=== PATIENT | male | born 1945 | race Caucasian/White ===

== ENCOUNTER 2018-02-13 11:03 | Emergency (ER) | payer OTHER, MEDICARE ==
[2018-02-13] MEDS ORDERED: Alum Hydrox/Mag Hydrox/Simeth 30 ML, Lidocaine 2% 15 ML PO ONE ×2 (11:57)
[2018-02-13] MEDS ORDERED: Famotidine 20 MG Tab PO ONE (11:58)
[2018-02-13] MEDS ORDERED: Prochlorperazine 5 MG Tab PO ONE (11:59)
--- NOTE | 2018-02-13 12:29 | EDM.PDOC ---
ED HPI GENERAL MEDICAL PROBLEM - General Chief Complaint: Abdominal Pain Stated Complaint: UPPER ABDOMINAL PAIN Time Seen by Provider: 02/13/18 11:41 Source of Information: Reports: Patient History Limitations: Reports: No Limitations - History of Present Illness INITIAL COMMENTS - FREE TEXT/NARRATIVE: Patient is a 73-year-old male who has been recently diagnosed with lung cancer stage IV undergoing chemotherapy. He's completed 3 treatments. States since Wednesday after eating chili he has been experiencing intermittent hiccups with eating or drinking. He questions if he may have a chili rodriguez stuck in his throat. This started Wednesday evening. He has continued to eat and drink with no difficulties. He is able to keep food or liquids down. He does experience some intermittent pain to the epigastric region with eating or drinking and does go away. Severity is mild with waxing and waning. Localized with no radiation. At its worse is rated a 4 out of 10. He has not taken any medications for this complaint. There's been no change in appetite. Currently with admission to the ED there is no discomfort. He does have a history of peptic ulcer at a young age. He's had a EGD and a colonoscopy with no significant findings with rectal cancer that has been since treated. Denies any sob breath, chest pain, nausea vomiting, fevers, hemoptysis, abdominal pain currently, bloody stool, dark tarry stool, diarrhea, constipation, painful urination, or any additional complaints. He carries a history of hypertension and is currently on lisinopril with HCTZ. He's undergone bilateral inguinal hernia repairs. Gallbladder and appendix remain intact. No history of diverticulitis. Of note patient states with drinking cold liquids he does get a sensation of pain to esophagus and epigastric region since starting chemotherapy. Mid-Sternal Chest Pain Score (Numeric/FACES): 5 - Related Data Allergies Allergy/AdvReac Type Severity Reaction Status Date / Time No Known Allergies Allergy Verified 02/13/18 11:24 Home Meds: Home Meds Hyoscyamine Sulfate [Levsin-Sl] 0.125 mg SL TID PRN #21 tab.subl 02/13/18 [Rx] Lisinopril/Hydrochlorothiazide [Lisinopril-Hctz 10-12.5 mg Tab] 1 each PO DAILY 02/13/18 [History] Past Medical History Cardiovascular History: Reports: Hypertension Musculoskeletal History: Reports: Other (See Below) Other Musculoskeletal History: bilateral elbow surgery Oncologic (Cancer) History: Reports: Lung - Past Surgical History GI Surgical History: Reports: Hernia, Inguinal Musculoskeletal Surgical History: Reports: Shoulder Replacement, Shoulder Surgery Other Musculoskeletal Surgeries/Procedures:: bilateral shoulder surgery Social & Family History - Tobacco Use Smoking Status *Q: Former Smoker Years of Tobacco use: 20 Packs/Tins Daily: 1 Used Tobacco, but Quit: Yes Month/Year Tobacco Last Used: 1 Second Hand Smoke Exposure: Yes - Caffeine Use Caffeine Use: Reports: Coffee - Recreational Drug Use Recreational Drug Use: No ED ROS GENERAL - Review of Systems Review Of Systems: ROS reveals no pertinent complaints other than HPI. ED EXAM, GI/ABD - Physical Exam Exam: See Below Exam Limited By: No Limitations General Appearance: Alert, WD/WN, No Apparent Distress Ears: Hearing Grossly Normal Nose: Normal Inspection Throat/Mouth: Normal Inspection, Normal Oropharynx, Normal Voice, No Airway Compromise Head: Atraumatic, Normocephalic Neck: Normal Inspection, Supple, Non-Tender, Full Range of Motion Respiratory/Chest: No Respiratory Distress, Lungs Clear, Normal Breath Sounds, No Accessory Muscle Use, Chest Non-Tender Cardiovascular: Normal Peripheral Pulses, Regular Rate, Rhythm, No Murmur GI/Abdominal Exam: Normal Bowel Sounds, Soft, Non-Tender, No Organomegaly, No Distention Back Exam: Normal Inspection, Full Range of Motion. No: CVA Tenderness (L), CVA Tenderness (R) Extremities: Normal Inspection, Normal Range of Motion, Non-Tender, No Pedal Edema, Normal Capillary Refill Neurological: Alert, Oriented, CN II-XII Intact, Normal Cognition, No Motor/ Sensory Deficits Psychiatric: Normal Affect, Normal Mood Skin Exam: Warm, Dry, Intact, Normal Color Course - Vital Signs Last Recorded V/S: Last Vital Signs Temp 97.9 F 02/13/18 11:12 Pulse 97 02/13/18 11:12 Resp 12 02/13/18 11:12 BP 119/99 H 02/13/18 11:12 Pulse Ox 98 02/13/18 11:12 - Orders/Labs/Meds Orders: Active Orders 24 hr Category Date Time Status EKG Documentation Completion [RC] STAT Care 02/13/18 11:57 Active Labs: Laboratory Tests 02/13/18 02/13/18 Range/Units 12:10 12:10 WBC 3.72 L (4.23-9.07) K/mm3 RBC 4.99 (4.63-6.08) M/mm3 Hgb 15.1 (13.7-17.5) gm/L Hct 42.5 (40.1-51.0) % MCV 85.2 (79.0-92.2) fl MCH 30.3 (25.7-32.2) pg MCHC 35.5 (32.2-35.5) g/dl RDW Std Deviation 39.6 (35.1-43.9) fL Plt Count 137 L (163-337) K/mm3 MPV 9.6 (9.4-12.3) fl Sodium 132 L (136-145) mEq/L Potassium 3.8 (3.5-5.1) mEq/L Chloride 99 (98-107) mEq/L Carbon Dioxide 24 (21-32) mEq/L Anion Gap 12.8 (5-15) BUN 23 H (7-18) mg/dL Creatinine 0.8 (0.7-1.3) mg/dL Est Cr Clr Drug Dosing 69.40 mL/min Estimated GFR (MDRD) > 60 (>60) mL/min BUN/Creatinine Ratio 28.8 H (14-18) Glucose 99 (83-115) mg/dL Calcium 8.7 (8.5-10.1) mg/dL Total Bilirubin 0.6 (0.2-1.0) mg/dL AST 14 L (15-37) U/L ALT 16 (16-63) U/L Alkaline Phosphatase 73 (46-116) U/L Troponin I < 0.017 (0.00-0.056) ng/mL C-Reactive Protein 0.4 (<1.0) mg/dL Total Protein 6.4 (6.4-8.2) g/dl Albumin 3.2 L (3.4-5.0) g/dl Globulin 3.2 gm/dL Albumin/Globulin Ratio 1.0 (1-2) Lipase 196 (73-393) U/L Meds: Medications Discontinued Medications Generic Name Dose Route Start Last Admin Trade Name Freq PRN Reason Stop Dose Admin Al Hydroxide/Mg Hydroxide 30 0 ml 02/13/18 11:57 02/13/18 12:09 ml/ Lidocaine HCl 15 ml PO 02/13/18 11:58 45 ml ONETIME ONE Administration Famotidine 40 mg 02/13/18 11:58 02/13/18 12:11 Pepcid PO 02/13/18 11:59 40 mg ONETIME ONE Administration Prochlorperazine Maleate 5 mg 02/13/18 11:59 02/13/18 12:12 Compazine PO 02/13/18 12:00 5 mg ONETIME ONE Administration - Re-Assessments/Exams Free Text/Narrative Re-Assessment/Exam: Differential diagnosis: Esophagitis, GERD, hiatal hernia, myocardial infarction , pancreatitis, peptic ulcer, food obstruction. More likely associated with esophagitis, GERD, and possible peptic ulcer disease with history of chemotherapy cause an aggravation to esophagus and stomach. Chest x-ray will be obtained to evaluate for idle hernia. Due to his age cardiac markers and EKG will be obtained. I've also obtain a lipase to rule out pancreatitis. Do not believe related to food obstruction since she's been able to tolerate eating and drinking since onset. Initial labs and studies will include: CBC, chem 14, CRP, lipase, chest x-ray two-view with abdomen series, and EKG. I did have the patient drink a small amount of clear soda. States with drinking cold items he gets a burning sensation esophagus and also in his epigastric region. Similar pain. GI cocktail along with Compazine has been ordered. EKG sinus rhythm at a rate of 79 with borderline short VT interval, T-wave inversion aVL, V1 through V2 with mild ST depression in these leads 2 and lead 3. Differential diagnosis: Esophagitis, GERD, hiatal hernia, myocardial infarction , pancreatitis, peptic ulcer, food obstruction. More likely associated with esophagitis, GERD, and possible peptic ulcer disease with history of chemotherapy cause an aggravation to esophagus and stomach. Chest x-ray will be obtained to evaluate for idle hernia. Due to his age cardiac markers and EKG will be obtained. I've also obtain a lipase to rule out pancreatitis. Do not believe related to food obstruction since she's been able to tolerate eating and drinking since onset. Initial labs and studies will include: CBC, chem 14, CRP, lipase, chest x-ray two-view with abdomen series, and EKG. I did have the patient drink a small amount of clear soda. States with drinking cold items he gets a burning sensation esophagus and also in his epigastric region. Similar pain. GI cocktail along with Compazine has been ordered. EKG sinus rhythm at a rate of 79 with borderline short VT interval, T-wave inversion aVL, V1 through V2 with mild ST depression in these leads 2 and lead 3. Chest x-ray with abdomen series impression: reviewed with Dr. Horne. Nonspecific air and stool patterns. CXR indicated no acute findings. Questionable finding for hiatal hernia. Final interpretation is pending. Labs reviewed: Sodium 132, potassium 3.8, creatinine 0.8, troponin less than 0.017, lipase 196, white blood cell count 3.72, hemoglobin 15.1, platelet count low at 137. 1322 Reassessment, Patient offers no complaints. Discussed results of labs and imaging with patient. Suspect patients intermittent hiccups is associated with irritation to the phrenic nerve 2nd to gastritis caused by chemo therapy and diet. Patient was instructed to take Prilosec 2 tabs every a.m. for the next 2 weeks and thereafter one tab every morning. May utilize Maalox immediately throughout the day. Zantac in the evening. Instructed refrain from: Caffeinated beverages, spicy foods, chocolates, eating or drinking within 4 hours ago and bed. Follow-up with PCP the next week for reevaluation. Return back to ED if he should express any new or worsening symptoms. The patient remained hemodynamically stable while under my care in the E.D. I discussed the concerning symptoms for which to returnto the E.D. with the patient/family. The patient/family verbalized understanding. All questions were answered. Departure - Departure Time of Disposition: 13:27 Disposition: DC/Tfer to Medicaid [facility] Condition: Good Clinical Impression: Hiatal hernia with GERD, Hiccups Gastritis Qualifiers: Gastritis type: unspecified gastritis Chronicity: acute Gastritis bleeding: without bleeding Qualified Code(s): K29.00 - Acute gastritis without bleeding - Discharge Information Prescriptions: Hyoscyamine Sulfate [Levsin-Sl] 0.125 mg SL TID PRN #21 tab.subl PRN Reason: Other Instructions: Indigestion, [id number], Hiccups, Gastritis, Adult, Food Choices for Gastroesophageal Reflux Disease, Adult, Hiatal Hernia Referrals: PCP,None [Primary Care Provider] - Forms: ED Department Discharge Additional Instructions: Refrain from spicy foods, caffeine, chocolates, eating or drinking within 4 hrs of bed. Take prilosec 40mg every a.m. 1/2 hr prior to eating every morning for two weeks. Thereafter take 1 tab everyday. May use Maalox intermittently throughout the day for symptoms. Take levsin SL every 4 hrs as needed for hiccups. If symptoms persist at night take zantac 150mg as well before bedtime. See your PCP in one week. EGD and further testing maybe required. Return to the E.D. if you develop any new or worsening symptoms. - My Orders Last 24 Hours: My Active Orders 02/13/18 11:57 EKG Documentation Completion [RC] STAT - Assessment/Plan Last 24 Hours: My Active Orders 02/13/18 11:57 EKG Documentation Completion [RC] STAT
--- NOTE | 2018-02-13 14:08 | CR ---
Abdominal series: Supine and upright views of the abdomen were obtained as well as frontal view of the chest. Comparison: No previous study. Heart size is normal. Tortuous thoracic aorta is noted. Left-sided infusion port is seen. Left shoulder prosthesis and right shoulder prosthesis are seen. Lungs are hyperinflated compatible with emphysematous change. Scattered gas within small bowel and colon is seen. Several air-fluid levels are seen. Findings do not appear to be obstructive. No free air is identified. Slight degenerative change is scattered within the spine. Phleboliths are seen within the pelvis. Impression: 1. Slightly prominent gas within small bowel. Scattered air-fluid levels are seen. Findings do not appear to be obstructive but could represent an ileus. 2. Other incidental findings as noted above. Diagnostic code #2
== END 2018-02-13 13:40 ==
LOC: JD.ED 11:03
DX: K29.00 Acute gastritis without bleeding (principal); K44.9 Diaphragmatic hernia without obstruction or gangrene; R06.6 Hiccough; I10 Essential (primary) hypertension; C34.90 Malignant neoplasm of unspecified part of unspecified bronchus or lung; Z79.899 Other long term (current) drug therapy; Z87.891 Personal history of nicotine dependence
CPT/HCPCS: 36415; 74022; 80053; 83690; 84484; 85027; 86140; 93005; 99284; A9270; Q0164; 99283

== ENCOUNTER 2023-07-14 06:51 | Day surgery (SDC) | payer MEDICARE, OTHER ==
[2023-07-14] MEDS ORDERED: Sodium Chloride 0.9% 10 ML Syringe FLUSH PRN (07:00)
[2023-07-14] MEDS ORDERED: Sodium Chloride 0.9% 10 ML Syringe FLUSH SCH (07:00)
[2023-07-14] MEDS ORDERED: ceFAZolin 2 GM Vial ONE (07:09)
[2023-07-14] MEDS ORDERED: Propofol 200 MG/20 ML SDV ONE ×2 (07:10→09:20)
[2023-07-14] MEDS: Lactated Ringers 1,000 ML IV SCH (07:15)
[2023-07-14] MEDS: Acetaminophen 325 MG Tab PO ONE (07:37)
[2023-07-14] MEDS: Gabapentin 300 MG Cap PO ONE (07:37)
[2023-07-14] MEDS: EPINEPHrine 1 MG/ML SDV ONE (09:03)
[2023-07-14] MEDS: Bupivacaine 0.5% 30 ML SDV ONE (09:03)
[2023-07-14] MEDS: Sodium Chloride 0.9% 50 ML SDV ONE (09:24)
== END 2023-07-14 10:20 | disposition home or self-care (01) ==
LOC: JD.SDS 06:51
PROVIDERS: ATTEND Surgery
DX: C78.5 Secondary malignant neoplasm of large intestine and rectum (principal); C18.9 Malignant neoplasm of colon, unspecified; C78.00 Secondary malignant neoplasm of unspecified lung; J95.811 Postprocedural pneumothorax; I10 Essential (primary) hypertension; Z79.899 Other long term (current) drug therapy
CPT/HCPCS: 71045; 71045-26; 76000; 76000-26; A9270-GY; C1788; J0171; J0665; J0690; J1642; J2704; J3490; J7120